=== PATIENT | female | born 1975 | race Asian ===

== ENCOUNTER → 2023-11-08 17:48 | Outpatient (REF) | payer BC, SELFPAY ==
[2023-11-08 17:38] LABS: % Basophils 0.6 % (0-2); % Eosinophils 6.7 % (0-6); % Immature Granulocytes 0.1 % (0-0.5); % Lymphocytes 42.3 % (20.5-51.1); % Monocytes 6.8 % (1.7-9.3); % Neutrophils 43.5 % (42.2-75.2); Absolute Basophils 0.1 10^3/uL (0-0.2); Absolute Eosinophils 0.6 10^3/uL (0-0.7); Absolute Lymphocytes 3.8 10^3/uL (1.2-3.4); Absolute Monocytes 0.6 10^3/uL (0.1-0.6); Absolute Neutrophils 3.9 10^3/uL (1.4-6.5); Hemoglobin 11.7 g/dL (12.0-16.0); Mean Corp Hgb Conc. 32.5 g/dL (33.0-37.0); Mean Corpuscular Hgb 28.1 pg (27.0-31.0); Mean Corpuscular Volume 86.5 fL (81.0-99.0); Mean Platelet Volume 10.7 fL (7.4-10.4); Nucleated Red Blood Cells % 0 %; Platelet Count 354 10^3/uL (130-400); Red Blood Cell Count 4.16 10^6/uL (4.20-5.40); White Blood Cell Count 8.9 10^3/uL (4.8-10.8)
[2023-11-08 18:03] LABS: ALT (SGPT) 35 U/L (0-35); AST (SGOT) 35 U/L (14-36); Albumin 4.6 g/dl (3.5-5.0); Alkaline Phosphatase 103 U/L (38-126); Blood Urea Nitrogen 12 mg/dl (7-17); Calcium 10.4 mg/dl (8.4-10.2); Carbon Dioxide 27 mmol/L (22-30); Chloride 101 mmol/L (98-107); Glucose 102 mg/dl (70-99); Potassium 4.5 mmol/L (3.5-5.1); Sodium 139 mmol/L (135-145); Total Bilirubin 0.5 mg/dl (0.2-1.3); Total Protein 7.8 g/dl (6.3-8.2); eGFR > 60.00
== END ==
LOC: WDC 17:48
PROVIDERS: ATTENDING PHYSICIAN Nurse Practitioner Adult Health; FAMILY PHYSICIAN Internal Medicine
DX: Z12.31 Encounter for screening mammogram for malignant neoplasm of breast (principal); R10.13 Epigastric pain
CPT/HCPCS: 36415; 77063; 77067; 80053; 85025

== ENCOUNTER → 2023-11-13 14:04 | Outpatient (REF) | payer BC, SELFPAY ==
[2023-11-15 16:28] LABS: FIT-Fecal Occult Blood Interp Negative
[2023-11-16 01:15] LABS: H. pylori Antigen, Fecal Positive (Negative)
== END ==
LOC: REG 14:04
PROVIDERS: ATTENDING PHYSICIAN Internal Medicine
DX: R10.13 Epigastric pain (principal)
CPT/HCPCS: 83520; 87338

== ENCOUNTER → 2024-03-17 09:27 | Outpatient (REF) | payer BC, SELFPAY ==
[2024-03-17 10:32] LABS: % Basophils 0.5 % (0-2); % Eosinophils 5.8 % (0-6); % Immature Granulocytes 0.2 % (0-0.5); % Lymphocytes 42.1 % (20.5-51.1); % Monocytes 6.1 % (1.7-9.3); % Neutrophils 45.3 % (42.2-75.2); Absolute Eosinophils 0.3 10^3/uL (0-0.7); Absolute Lymphocytes 2.3 10^3/uL (1.2-3.4); Absolute Monocytes 0.3 10^3/uL (0.1-0.6); Absolute Neutrophils 2.5 10^3/uL (1.4-6.5); Hematocrit 37.4 % (37.0-47.0); Hemoglobin 12.7 g/dL (12.0-16.0); Mean Corpuscular Hgb 28.7 pg (27.0-31.0); Mean Corpuscular Volume 84.6 fL (81.0-99.0); Nucleated Red Blood Cells % 0 %; Platelet Count 330 10^3/uL (130-400); Red Blood Cell Count 4.42 10^6/uL (4.20-5.40); Red Cell Dist. Width 12.7 % (11.5-14.5); White Blood Cell Count 5.5 10^3/uL (4.8-10.8)
[2024-03-17 10:59] LABS: ALT (SGPT) 27 U/L (0-35); AST (SGOT) 26 U/L (14-36); Albumin 4.7 g/dl (3.5-5.0); Alkaline Phosphatase 112 U/L (38-126); Blood Urea Nitrogen 9 mg/dl (7-17); Calcium 10.4 mg/dl (8.4-10.2); Carbon Dioxide 28 mmol/L (22-30); Chloride 104 mmol/L (98-107); Glucose 96 mg/dl (70-99); HDL Cholesterol 72 mg/dl; LDL Cholesterol, Calculated 173 mg/dl; Potassium 4.6 mmol/L (3.5-5.1); Sodium 140 mmol/L (135-145); Total Cholesterol 272 mg/dl (50-199); Total Protein 7.9 g/dl (6.3-8.2); Triglyceride 137 mg/dl (10-149); Very Low Density Lipoprotein 27 mg/dl (0-30); eGFR > 60.00
[2024-03-17 11:26] LABS: TSH Reflex To Free T4 1.16 uIU/ml (0.47-4.68)
[2024-03-17 12:12] LABS: Total Bilirubin 0.5 mg/dl (0.2-1.3)
== END ==
LOC: REG 09:27
PROVIDERS: ATTENDING PHYSICIAN Internal Medicine
DX: Z00.00 Encounter for general adult medical examination without abnormal findings (principal)
CPT/HCPCS: 36415; 80053; 80061; 84443; 85025

== ENCOUNTER → 2024-04-18 06:38 | Day surgery (SDC) | payer BC, SELFPAY | LOC: GI 06:38 | PROVIDERS: ATTENDING PHYSICIAN Internal Medicine Gastroenterology; FAMILY PHYSICIAN Internal Medicine | DX: K63.5 Polyp of colon (principal); K57.30 Diverticulosis of large intestine without perforation or abscess without bleeding; K64.8 Other hemorrhoids; R19.5 Other fecal abnormalities; K29.50 Unspecified chronic gastritis without bleeding; K31.89 Other diseases of stomach and duodenum; K44.9 Diaphragmatic hernia without obstruction or gangrene; R10.13 Epigastric pain; Z87.19 Personal history of other diseases of the digestive system | CPT/HCPCS: 45380; 43239; 88305; 88342 ==

== ENCOUNTER → 2024-05-19 07:51 | Outpatient (REF) | payer BC, SELFPAY | LOC: RAD 07:51 | PROVIDERS: ATTENDING PHYSICIAN Internal Medicine; REFERRING PHYSICIAN Nurse Practitioner Adult Health | DX: Z00.00 Encounter for general adult medical examination without abnormal findings (principal); M85.88 Other specified disorders of bone density and structure, other site; Z78.0 Asymptomatic menopausal state | CPT/HCPCS: 77080 ==

== ENCOUNTER → 2024-08-15 17:06 | Outpatient (REF) | payer BC, SELFPAY ==
[2024-08-23 06:04] LABS: HPV, High Risk Not Detected; HPV, High Risk Source Cervical
== END ==
LOC: CPAP 17:06
PROVIDERS: ATTENDING PHYSICIAN Nurse Practitioner Adult Health
DX: Z01.419 Encounter for gynecological examination (general) (routine) without abnormal findings (principal)
CPT/HCPCS: 87624

== ENCOUNTER → 2024-10-08 10:15 | Outpatient (REF) | payer BC, SELFPAY ==
[2024-10-08 10:49] LABS: Ionized Calcium 1.22 mMOL/L (1.15-1.33)
[2024-10-08 11:13] LABS: Calcium 9.6 mg/dl (8.4-10.2)
[2024-10-08 11:27] LABS: Intact PTH 32.7 pg/ml (13.6-85.8)
[2024-10-08 11:31] LABS: Vitamin D, 25-OH*** 50.6 ng/mL (30-80)
== END ==
LOC: REG 10:15
PROVIDERS: ATTENDING PHYSICIAN Internal Medicine Endocrinology, Diabetes & Metabolism; FAMILY PHYSICIAN Internal Medicine
DX: M81.0 Age-related osteoporosis without current pathological fracture (principal); E55.9 Vitamin D deficiency, unspecified
CPT/HCPCS: 36415; 82306; 82330; 83970

== ENCOUNTER → 2024-11-14 07:02 | Outpatient (REF) | payer BC, SELFPAY | LOC: WDC 07:02 | PROVIDERS: ATTENDING PHYSICIAN Nurse Practitioner Adult Health; FAMILY PHYSICIAN Internal Medicine | DX: Z12.31 Encounter for screening mammogram for malignant neoplasm of breast (principal) | CPT/HCPCS: 77063; 77067 ==

== ENCOUNTER → 2025-05-07 06:52 | Outpatient (REF) | payer BC, SELFPAY ==
[2025-05-07 07:47] LABS: Hematocrit 37.7 % (37.0-47.0); Hemoglobin 12.5 g/dL (12.0-16.0); Mean Corp Hgb Conc. 33.2 g/dL (33.0-37.0); Mean Corpuscular Volume 85.3 fL (81.0-99.0); Nucleated Red Blood Cells % 0 %; Platelet Count 319 10^3/uL (130-400); Red Cell Dist. Width 12.5 % (11.5-14.5)
[2025-05-07 08:14] LABS: ALT (SGPT) 25 U/L (0-35); AST (SGOT) 24 U/L (14-36); Albumin 4.6 g/dl (3.5-5.0); Alkaline Phosphatase 103 U/L (38-126); Blood Urea Nitrogen 11 mg/dl (7-17); Calcium 9.7 mg/dl (8.4-10.2); Carbon Dioxide 28 mmol/L (22-30); Chloride 108 mmol/L (98-107); Glucose 97 mg/dl (70-99); HDL Cholesterol 76 mg/dl; LDL Cholesterol, Calculated 161 mg/dl; Potassium 5.1 mmol/L (3.5-5.1); Sodium 141 mmol/L (135-145); Total Protein 8.0 g/dl (6.3-8.2); Very Low Density Lipoprotein 22 mg/dl (0-30); eGFR > 60.00
== END ==
LOC: REG 06:52
PROVIDERS: ATTENDING PHYSICIAN Internal Medicine
DX: Z12.31 Encounter for screening mammogram for malignant neoplasm of breast (principal); Z00.00 Encounter for general adult medical examination without abnormal findings; M85.88 Other specified disorders of bone density and structure, other site; Z86.19 Personal history of other infectious and parasitic diseases; Z78.0 Asymptomatic menopausal state; E66.3 Overweight; Z13.31 Encounter for screening for depression
CPT/HCPCS: 36415; 80053; 80061; 84443; 85025